=== PATIENT | female | born 1995 | race Caucasian/White ===

== ENCOUNTER 2019-12-01 09:35 | Emergency (ER) | payer BC ==
[2019-12-01] MEDS ORDERED: NORMAL SALINE 1000 ML 1,000 ML IV ONE (10:43)
[2019-12-01] MEDS ORDERED: ONDANSETRON HCL INJ/PF 4 MG/2 ML SDV IV ONE (10:43)
--- NOTE | 2019-12-01 11:22 | ER Document Report ---
ED General - General Chief Complaint: Vomiting Stated Complaint: DIFFICULTY BREATHING Primary Care Provider: FARNAZ MANN MD [COMMUNITY BASED STAFF] - Follow up as needed MIRLANDE OCAMPO MD [ACTIVE STAFF] - Follow up as needed - [facility] Notes: 24-year-old female presents emergency room today for complaints of sudden onset nausea and vomiting which made her feel then short of breath which started approximately 6 hours ago. Patient recently drove from [place] down to [place] yesterday to visit her fianc. Denies any new medications, no vgou-yix-leozrdm medications tried. Nothing makes worse, nothing makes better. Patient reports she also has a history of anxiety, states that she thinks she may have had a little bit of an anxiety attack with the COVID pandemic. Denies fevers, chills, chest pain,palpitations, shortness of breath, dyspnea, diarrhea, abdominal pain, hematuria,blurred vision, double vision, loss of vision, speech changes, LH, dizziness, syncope, headaches, wheezing, ST, URI, neck pain, weakness, bowel or bladder dysfunction, saddle anesthesia, numbness or tingling in bilateral upper or lower extremities equally, muscle paralysis, weakness in bilateral upper or lower extremities equally or rash. Denies IV drug use. MEDICATIONS: I agree with the patient medications as charted by the RN. ALLERGIES: I agree with the allergies as charted by the RN. PAST MEDICAL HISTORY/PAST SURGICAL HISTORY: Reviewed and agree as charted by RN. SOCIAL HISTORY: Reviewed and agree as charted by RN. FAMILY HISTORY: No significant familial comorbid conditions directly related to patient complaint EXAM: Reviewed vital signs as charted by RN. REVIEW OF SYSTEMS:reviewed vital signs by RN CONSTITUTIONAL : Denies fever, chills, or sweats. Denies recent illness. EENT: Denies eye, ear, throat, or mouth pain or symptoms. Denies nasal or sinus congestion or discharge. Denies throat, tongue, or mouth swelling or difficulty swallowing. CARDIOVASCULAR: Denies chest pain. Denies palpitations or racing or irregular heart beat. Denies ankle edema. RESPIRATORY: Denies cough, cold, or chest congestion. Denies shortness of breath, difficulty breathing, or wheezing. GASTROINTESTINAL: Reports vomiting and scant abdominal pain. denies abdominal pain or distention. Denies diarrhea. Denies blood in vomitus, stools, or per rectum. Denies black, tarry stools. Denies constipation. GENITOURINARY: Denies difficulty urinating, painful urination, burning, frequency, blood in urine, or discharge. FEMALE GENITOURINARY: Denies vaginal bleeding, heavy or abnormal periods, irregular periods. Denies vaginal discharge or odor. MUSCULOSKELETAL: Denies back or neck pain or stiffness. Denies joint pain or swelling. SKIN: Denies rash, lesions or sores. HEMATOLOGIC : Denies easy bruising or bleeding. LYMPHATIC: Denies swollen, enlarged glands. NEUROLOGICAL: Denies confusion or altered mental status. Denies passing out or loss of consciousness. Denies dizziness or lightheadedness. Denies headache. Denies weakness or paralysis or loss of use of either side. Denies problems with gait or speech. Denies sensory loss, numbness, or tingling. Denies seizures. PSYCHIATRIC: Denies anxiety or stress. Denies depression, suicidal ideation, or homicidal ideation. ALL OTHER SYSTEMS REVIEWED AND NEGATIVE. PHYSICAL EXAMINATION: GENERAL: Well-appearing, well-nourished and in no acute distress. HEAD: Atraumatic, normocephalic. EYES: Pupils equal round and reactive to light, extraocular movements intact, conjunctiva are normal. ENT: Nares patent, oropharynx clear without exudates. Moist mucous membranes. NECK: Normal range of motion, supple without lymphadenopathy LUNGS: Breath sounds clear to auscultation bilaterally and equal. No wheezes rales or rhonchi. HEART: Regular rate and rhythm without murmurs ABDOMEN: Soft, nondistended abdomen. No guarding, no rebound. No masses appreciated. Generalized mild abdominal pain, no flank tenderness bilaterally Female : deferred Musculoskeletal: Normal range of motion, no pitting or edema. No cyanosis. NEUROLOGICAL: Cranial nerves grossly intact. Normal speech, normal gait. Normal sensory, motor exams PSYCH: Normal mood, normal affect. SKIN: Warm, Dry, normal turgor, no rashes or lesions noted. Dictation was performed using [employer] voice recognition software Past Medical History - General Information source: Patient - Social History Smoking Status: Current Some Day Smoker Drug Abuse: Marijuana Family History: Reviewed & Not Pertinent Patient has homicidal ideation: No Physical Exam - Vital signs Vitals: Temp Pulse Resp BP Pulse Ox 97.6 F 80 16 142/86 H 100 12/01/19 09:41 12/01/19 09:41 12/01/19 09:41 12/01/19 09:41 12/01/19 09:41 Course - Re-evaluation Re-evalutation: 12/01/19 15:38 Afebrile vital stable no distress. Nurses notes reviewed. Per Wells criteria and, patient does not fall into criterion for PE for complaint of shortness of b reath, heart rate is less than 100, patient is not on control, has not had any recent surgery, no no chemotherapy. Patient states that she did get out of the car every 2-3 hours when she was driving from [place], no prior history of DVT. Patient states her shortness of breath has completely resolved, and thinks it was related to the fact that she went to hotel room and then her fianc had to leave to go to work so she was left alone. She called him and then he came back to bring her to the emergency room. CBC negative for leukocytosis or anemia, CMP negative for renal dysfunction, no electrolyte disturbances. Her AST was 101 and her ALT was 62, I did initiate hepatitis work-up which will be pending. chest x-ray is unremarkable. Patient given Zofran for her nausea and some IV fluids due to proteinuria noted in urine. Nitrates negative, will complete a urine culture. CT abdomen pelvis unremarkable, appendix visualized, radiologist read artifact versus colitis in her imaging, discussed these results and consulted with Dr. Srinivasa Moncada at [address] results. Due to the fact the patient is not having any diarrhea, does not have a white count is not complaining of any severe lower abdominal pain, her last bowel movement was yesterday, I do not feel nor does Dr. Moncada feel that that the diagnosis of colitis is beneficial to this patient. Discussed with patient that she does need to follow-up with primary care provider due to the fact that she is going to be in the area for at least 7 months, she agreed with this plan of care. Discussed with her that she does need follow-up on her liver enzymes and hepatitis panel and she will be notified. Discussed patient she does need return to the emergency room if she experiences any increased vomiting, any abdominal pain, any shortness of breath, any chest pain any fever, any chills, any weakness, lower back pain etc. immediately. After performing a Medical Screening Examination, I estimate there is LOW risk for ACUTE APPENDICITIS, BOWEL OBSTRUCTION, ACUTE CHOLECYSTITIS, PERFORATED DIVERTICULITIS, INCARCERATED HERNIA, PANCREATITIS, PELVIC INFLAMMATORY DISEASE, PERFORATED ULCER, ECTOPIC , or TUBO-OVARIAN ABSCESS, thus I consider the discharge disposition reasonable. Also, there is no evidence or peritonitis, sepsis, or toxicity. I have reevaluated this patient multiple times and no significant life threatening changes are noted. The patient and I have discussed the diagnosis and risks, and we agree with discharging home with close follow-up with the understanding that symptoms and presentations can change. We also discussed returning to the Emergency Department immediately if new or worsening symptoms occur. We have discussed the symptoms which are most concerning (e.g., bloody stool, fever, changing or worsening pain, vomiting) that necessitate immediate return. - Vital Signs Vital signs: Temp Pulse Resp BP Pulse Ox 99.1 F 75 16 122/84 100 12/01/19 15:50 12/01/19 15:50 12/01/19 15:50 12/01/19 15:50 12/01/19 15:50 - Laboratory Result Diagrams: 12/01/19 11:10 12/01/19 11:10 Laboratory results interpreted by me: 12/01/19 12/01/19 10:55 11:10 Calcium 10.3 H AST 101 H ALT 62 H Total Protein 9.1 H Albumin 5.2 H Urine Protein >=500 H Ur Leukocyte Esterase TRACE H Discharge - Discharge Clinical Impression: Vomiting, Elevated liver enzymes Condition: Stable Disposition: HOME, SELF-CARE Instructions: Antinausea Medication ([facility]), Intravenous (IV) Fluids ([facility]), Vomiting ([facility]) Additional Instructions: Your liver enzymes were elevated today, we are running a hepatitis panel that will not be back for couple of days.Your labs were otherwise normal, no white count Your CT was normal. Due to artifact the radiologist that there may be a colitis however you do not have a white count and you are not having any diarrhea. 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 You were given IV fluids today. Please take Zofran as needed. Return to the emergency room for experience any fever, chills, worsening symptoms, vomiting, diarrhea, etc. Return immediately for any new or worsening symptoms. Follow up with primary care provider, call tomorrow to make followup appointment. Prescriptions: Cephalexin [Keflex] 500 mg PO BID #10 capsule Ondansetron [Zofran Odt 4 mg Tablet] 1 - 2 tab PO Q4H PRN #15 tab.rapdis PRN Reason: For Nausea/Vomiting Referrals: FARNAZ MANN MD [COMMUNITY BASED STAFF] - Follow up as needed MIRLANDE OCAMPO MD [ACTIVE STAFF] - Follow up as needed
[2019-12-01 11:25] LABS: APPEARANCE,URINE SLIGHTLY-CLOUDY; BILIRUBIN,URINE NEGATIVE (NEGATIVE); COLOR,URINE YELLOW; GLUCOSE, URINE NEGATIVE (NEGATIVE); KETONES,URINE NEGATIVE (NEGATIVE); LEUKOCYTE ESTERASE,URINE TRACE (NEGATIVE); NITRITE,URINE NEGATIVE (NEGATIVE); PROTEIN,URINE >=500 mg/dL (NEGATIVE); URINE SPECIFIC GRAVITY 1.018; UROBILINOGEN,URINE NEGATIVE mg/dL (<2.0)
[2019-12-01 11:42] LABS: A TYPE INFLUENZA AG NEGATIVE (NEGATIVE); B INFLUENZA AG NEGATIVE (NEGATIVE)
--- NOTE | 2019-12-01 11:58 | RADIOLOGY REPORT (SQ) ---
EXAM DESCRIPTION: CHEST SINGLE VIEW IMAGES COMPLETED DATE/TIME: 12/01/2019 11:15 am REASON FOR STUDY: n/v with sob COMPARISON: None. EXAM PARAMETERS: NUMBER OF VIEWS: One view. TECHNIQUE: Single frontal radiographic view of the chest acquired. RADIATION DOSE: NA LIMITATIONS: None. FINDINGS: LUNGS AND PLEURA: No opacities, masses or pneumothorax. No pleural effusion. MEDIASTINUM AND HILAR STRUCTURES: No masses. Contour normal. HEART AND VASCULAR STRUCTURES: Heart normal in size. Normal vasculature. BONES: No acute findings. HARDWARE: None in the chest. OTHER: No other significant finding. IMPRESSION: NO ACUTE RADIOGRAPHIC FINDING IN THE CHEST. TECHNICAL DOCUMENTATION: JOB ID: [id number] 2010 [employer]- All Rights Reserved Reading location - IP/workstation name: [email or web address]
[2019-12-01 12:04] LABS: ABSOLUTE BASOPHILS # (AUTO) 0.1 10^3/uL (0.0-0.2); ABSOLUTE LYMPHOCYTES (AUTO) 1.3 10^3/uL (0.5-4.7); ABSOLUTE MONOCYTES (AUTO) 0.5 10^3/uL (0.1-1.4); ABSOLUTE NEUT (AUTO) 4.6 10^3/uL (1.7-8.2); BASOPHILS % (AUTO) 1.1 % (0-2); EOSINOPHILS % (AUTO) 0.5 % (0-6); HEMATOCRIT 40.4 % (36.0-47.0); HEMOGLOBIN 13.9 g/dL (12.0-15.5); LYMPHOCYTES % (AUTO) 19.7 % (13-45); MEAN CORPUSCULAR HEMOGLOBIN 32.5 pg (27.0-33.4); MEAN CORPUSCULAR HGB CONC 34.4 g/dL (32.0-36.0); MEAN CORPUSCULAR VOLUME 94 fl (80-97); MONOCYTES % (AUTO) 7.9 % (3-13); PLATELET COUNT 376 10^3/uL (150-450); RED BLOOD COUNT 4.28 10^6/uL (3.72-5.28); RED CELL DISTRIBUTION WIDTH 13.5 % (11.5-14.0); SEGMENTED NEUTROPHILS % (AUTO) 70.8 % (42-78); TOTAL CELLS COUNTED % (AUTO) 100 %; WHITE BLOOD COUNT 6.4 10^3/uL (4.0-10.5)
[2019-12-01 12:13] LABS: ALBUMIN 5.2 g/dL (3.5-5.0); ALKALINE PHOSPHATASE 118 U/L (38-126); ANION GAP 11 (5-19); ASPARTATE AMINO TRANSFERASE 101 U/L (14-36); BILIRUBIN,DIRECT 0.1 mg/dL (0.0-0.4); BILIRUBIN,TOTAL 0.6 mg/dL (0.2-1.3); BLOOD UREA NITROGEN 8 mg/dL (7-20); CALCIUM 10.3 mg/dL (8.4-10.2); CARBON DIOXIDE 26 mmol/L (22-30); CHLORIDE 100 mmol/L (98-107); GLUCOSE 109 mg/dL (75-110); POTASSIUM 4.4 mmol/L (3.6-5.0); TOTAL PROTEIN 9.1 g/dL (6.3-8.2)
--- NOTE | 2019-12-01 13:31 | RADIOLOGY REPORT (SQ) ---
EXAM DESCRIPTION: CT ABD/PELVIS WITH IV ONLY IMAGES COMPLETED DATE/TIME: 12/01/2019 1:13 pm REASON FOR STUDY: vomiting, abd pain COMPARISON: None. TECHNIQUE: CT scan of the abdomen and pelvis performed using helical scanning technique with dynamic intravenous contrast injection. No oral contrast. Images reviewed with lung, soft tissue, and bone windows. Reconstructed coronal and sagittal MPR images reviewed. Delayed images for evaluation of the urinary system also acquired. All images stored on PACS. All CT scanners at this facility use dose modulation, iterative reconstruction, and/or weight based d osing when appropriate to reduce radiation dose to as low as reasonably achievable (ALARA). [facility]: Dose Right [facility]: CareDose [facility]: Dose Right [facility]: Teradose 4D [facility]: [employer]jet CONTRAST TYPE AND DOSE: contrast/concentration: Isovue 350.00 mg/ml; Total Contrast Delivered: 100.0 ml; Total Saline Delivered: 72.0 ml RENAL FUNCTION: BUN 8 creatinine 0.63. RADIATION DOSE: CT Rad equipment meets quality standard of care and radiation dose reduction techniq ues were employed. CTDIvol: 4.8 - 4.9 mGy. DLP: 520 mGy-cm.. LIMITATIONS: None. FINDINGS: LOWER CHEST: No significant findings. No nodules or infiltrates. LIVER: Normal size. Diffuse fatty infiltration. No masses. No dilated ducts. SPLEEN: Normal size. No focal lesions. PANCREAS: No masses. No significant calcifications. No adjacent inflammation or peripancreatic fluid collections. Pancreatic duct not dilated. GALLBLADDER: No identified stones by CT criteria. No inflammatory changes to suggest cholecystitis. ADRENAL GLANDS: No significant masses or asymmetry. RIGHT KIDNEY AND URETER: No solid masses. No significant calcifications. No hydronephrosis or hyd roureter. LEFT KIDNEY AND URETER: No solid masses. No significant calcifications. No hydronephrosis or hydr oureter. AORTA AND VESSELS: No aneurysm. No dissection. Renal arteries, SMA, celiac without stenosis. RETROPERITONEUM: No retroperitoneal adenopathy, hemorrhage or masses. BOWEL AND PERITONEAL CAVITY: There is suboptimal distention of the colon with relative bowel wall thi ckening of the transverse colon from the hepatic flexure to the splenic flexure and also the proximal descending colon. No free fluid or peritoneal masses. APPENDIX: Normal. PELVIS: No mass. No free fluid. Normal bladder. ABDOMINAL WALL: No masses. No hernias. BONES: No significant or acute findings. OTHER: No other significant finding. IMPRESSION: 1. SUBOPTIMAL DISTENTION OF THE COLON. RELATIVE BOWEL WALL THICKENING INVOLVING THE TRANSVERSE COLON AND PROXIMAL DESCENDING COLON MAY BE ARTIFACT DUE TO SUBOPTIMAL DISTENTION VERSUS NONSPECIFIC COLITI S. 2. NO OTHER SIGNIFICANT OR ACUTE FINDING IN THE ABDOMEN OR PELVIS ON CT SCAN WITH IV CONTRAST. TECHNICAL DOCUMENTATION: JOB ID: [id number] Quality ID # [id number]: Final reports with documentation of one or more dose reduction techniques (e.g., Au tomated exposure control, adjustment of the mA and/or kV according to patient size, use of iterative reconstruction technique) 2010 [employer]- All Rights Reserved Reading location - IP/workstation name: [email or web address]
[2019-12-01 15:51] VITALS: BP 122/84
[2019-12-02 07:38] LABS: HEPATITS B SURFACE ANTIGEN Negative (Negative)
[2019-12-02 08:36] LABS: HEPATITIS C VIRUS ANTIBODY 0.1 s/co ratio (0.0-0.9)
== END 2019-12-01 15:51 | disposition home or self-care (01) ==
LOC: ER 09:35
DX: R11.2 Nausea with vomiting, unspecified (principal); R74.8 Abnormal levels of other serum enzymes; R06.02 Shortness of breath; F17.200 Nicotine dependence, unspecified, uncomplicated
CPT/HCPCS: 99285; 96361; 96374; 36415; 87070; 87880; 83690; 85025; 81025; 80053; 81001; 80074; 87804; 71045; 74177; J2405; J7030